=== PATIENT | female | born 1940 | race Caucasian/White ===

== ENCOUNTER 2017-12-13 14:29 | Inpatient (IN) | payer MEDICARE ==
[2017-12-13] MEDS ORDERED: SODIUM CHLORIDE 0.9% 1,000 ML IV STA (14:51)
[2017-12-13] MEDS ORDERED: ACETAMINOPHEN IV (For NPO) 1,000 MG in EMPTY BAG 1 BAG IVPB ONE (15:00)
--- NOTE | 2017-12-13 15:05 | ED ---
General Adult HPI - General Chief complaint: Back Pain/Injury Stated complaint: Back Pain Time Seen by Provider: 12/13/17 14:46 Source: patient, family, RN notes reviewed, old records reviewed Mode of arrival: wheelchair Limitations: physical limitation - History of Present Illness Initial comments: 77-year-old female history of chronic back pain secondary to lumbar compression fractures presents with 3 days of worsening pain. Patient has not fallen recently, she did have a fall approximately 3 months ago and was diagnosed with several new compression fractures. She does follow with orthopedic surgery and is instructed to wear a back brace. Pain is bilateral and severe. She is only taking tramadol for the pain at home. She does not use any opiate pain medication. Patient denies vomiting or diarrhea. Denies chest pain. She does report mild cough and dyspnea. According to the patient's she has not been out of bed for the past 3 days, she is normally ambulatory with some assistance. - Related Data Home Medications Medication Instructions Recorded Confirmed Atorvastatin [Lipitor] 20 mg PO HS 07/31/14 12/13/17 Cholecalciferol [Vitamin D3] 2,000 units PO DAILY 07/31/14 12/13/17 Folic Acid 1 mg PO DAILY 07/31/14 12/13/17 Methotrexate Sodium [Methotrexate] 12.5 mg PO SA 07/31/14 12/13/17 Amiodarone [Cordarone] 200 mg PO DAILY 10/03/15 12/13/17 Enalapril [Vasotec] 10 mg PO BID 10/03/15 12/13/17 Apixaban [Eliquis] 2.5 mg PO BID 11/18/17 12/13/17 Etanercept [Enbrel] 50 mg SQ Q7DAYS 11/18/17 12/13/17 Omeprazole [PriLOSEC] 20 mg PO AC-BID 11/18/17 12/13/17 Acetaminophen [Tylenol Extra 1,000 mg PO Q6H PRN 12/13/17 12/13/17 Strength] traMADol HCL [Ultram] 50 mg PO Q6HR PRN 12/13/17 12/13/17 Previous Rx's Medication Instructions Recorded Diltiazem Cd [Cardizem CD] 120 mg PO DAILY #30 cap.er.24h 09/08/14 Furosemide [Lasix] 20 mg PO DAILY #0 10/25/15 Allergies Allergy/AdvReac Type Severity Reaction Status Date / Time anakinra [From Kineret] Allergy blistered Verified 12/13/17 16:11 skin corticotropin Allergy immobility Verified 12/13/17 16:11 [From [facility] iodine Allergy Unknown Verified 12/13/17 16:11 venom-honey bee Allergy Anaphylaxis Verified 12/13/17 16:11 [bee venom (honey bee)] [place] Venom Allergy Anaphylaxis Uncoded 12/13/17 14:44 Review of Systems ROS Statement: Those systems with pertinent positive or pertinent negative responses have been documented in the HPI. ROS Other: All systems not noted in ROS Statement are negative. Past Medical History Past Medical History: Atrial Fibrillation, Diabetes Mellitus, GERD/Reflux, Hyperlipidemia, Hypertension, Osteoarthritis (OA), Rheumatoid Arthritis (RA) Additional Past Medical History / Comment(s): SOB w/activity, diet controlled diabetic only checks bs occ, past renal insufficincy, hiatal hernia, uti, anemia , djd. was checked for c-diff on 10-11-15-neg, diverticulitis, per egd 08-09-15 1 cm antrl ulcer-prepyloric area and gastritis. chronic back pain History of Any Multi-Drug Resistant Organisms: None Reported Past Surgical History: Appendectomy, Bowel Resection, Breast Surgery, Hernia Repair, Orthopedic Surgery, Tubal Ligation Additional Past Surgical History / Comment(s): ankle arthroscopies,BOWEL RESECTION D/T RUTPTURED BOWEL, colostomy then reversal, breast biopsies, cataract surg.colonoscpy/egd. Past Anesthesia/Blood Transfusion Reactions: No Reported Reaction Past Psychological History: No Psychological Hx Reported Smoking Status: Former smoker Past Alcohol Use History: None Reported Past Drug Use History: None Reported - Past Family History Mother Additional Family Medical History / Comment(s): AGE 92 AFTER PLACEMENT IN [facility]. PT WAS HEALTHY FROM NATURAL CAUSES Father Family Medical History: Deep Vein Thrombosis (DVT), Myocardial Infarction (SC) General Exam Limitations: physical limitation General appearance: alert, in no apparent distress Head exam: Present: atraumatic, normocephalic Eye exam: Present: normal appearance, PERRL Neck exam: Present: normal inspection. Absent: tenderness Respiratory exam: Present: respiratory distress (mild), decreased breath sounds , other (Tachypnea) Cardiovascular Exam: Present: regular rate, normal rhythm GI/Abdominal exam: Present: soft, distended. Absent: tenderness Extremities exam: Present: normal capillary refill. Absent: pedal edema, calf tenderness Back exam: Present: tenderness, paraspinal tenderness, vertebral tenderness Neurological exam: Present: alert, oriented X3, CN II-XII intact, motor sensory deficit (Bilateral lower extremity weakness secondary to severe back pain) Skin exam: Present: warm, dry, intact. Absent: cyanosis, diaphoretic Course Vital Signs 12/13/17 14:38 Temperature 101.1 F H Pulse Rate 90 Respiratory 20 Rate Blood Pressure 114/59 O2 Sat by Pulse 93 L Oximetry Medical Decision Making - Medical Decision Making 77-year-old female presenting with worsening low back pain and immobility. Patient is found afebrile on initial vital signs. White blood cell count is elevated 17.3, hemoglobin stable 13.0, creatinine normal sodium 133, influenza negative, chest x-ray does show pneumonia versus atelectasis versus pulmonary nodule, given the elevated white blood cell count and fever she will be treated for pneumonia. Lumbar x-ray is also obtained secondary to pain complaint, this is stable appearing lumbar fractures. Urinalysis and urine culture are pending. Blood culture pending. Diagnosis: Community acquired pneumonia, sepsis - Lab Data Result diagrams: 12/13/17 15:38 12/13/17 15:38 Lab Results 12/13/17 12/13/17 12/13/17 Range/Units 13:40 15:38 15:38 WBC 17.3 H (3.8-10.6) k/uL RBC 3.93 (3.80-5.40) m/uL Hgb 13.0 (11.4-16.0) gm/dL Hct 40.5 (34.0-46.0) % MCV 103.2 H (80.0-100.0) fL MCH 33.2 (25.0-35.0) pg MCHC 32.2 (31.0-37.0) g/dL RDW 15.4 (11.5-15.5) % Plt Count 308 (150-450) k/uL Neutrophils % 84 % Lymphocytes % 8 % Monocytes % 6 % Eosinophils % 0 % Basophils % 0 % Neutrophils # 14.5 H (1.3-7.7) k/uL Lymphocytes # 1.3 (1.0-4.8) k/uL Monocytes # 1.1 H (0-1.0) k/uL Eosinophils # 0.1 (0-0.7) k/uL Basophils # 0.1 (0-0.2) k/uL Hypochromasia Slight Macrocytosis Slight Sodium 133 L (137-145) mmol/L Potassium 4.8 (3.5-5.1) mmol/L Chloride 100 (98-107) mmol/L Carbon Dioxide 20 L (22-30) mmol/L Anion Gap 13 mmol/L BUN 16 (7-17) mg/dL Creatinine 0.74 (0.52-1.04) mg/dL Est GFR (MDRD) Af Amer >60 (>60 ml/min/1.73 sqM) Est GFR (MDRD) Non-Af >60 (>60 ml/min/1.73 sqM) Glucose 152 H (74-99) mg/dL Plasma Lactic Acid Jimenez (0.7-2.0) mmol/L Calcium 9.2 (8.4-10.2) mg/dL Total Bilirubin 1.0 (0.2-1.3) mg/dL AST 54 H (14-36) U/L ALT 44 (9-52) U/L Alkaline Phosphatase 80 (38-126) U/L Total Protein 6.9 (6.3-8.2) g/dL Albumin 3.4 L (3.5-5.0) g/dL Influenza Type A RNA Not Detected (Not Detectd) Influenza Type B (PCR) Not Detected (Not Detectd) 12/13/17 Range/Units 15:38 WBC (3.8-10.6) k/uL RBC (3.80-5.40) m/uL Hgb (11.4-16.0) gm/dL Hct (34.0-46.0) % MCV (80.0-100.0) fL MCH (25.0-35.0) pg MCHC (31.0-37.0) g/dL RDW (11.5-15.5) % Plt Count (150-450) k/uL Neutrophils % % Lymphocytes % % Monocytes % % Eosinophils % % Basophils % % Neutrophils # (1.3-7.7) k/uL Lymphocytes # (1.0-4.8) k/uL Monocytes # (0-1.0) k/uL Eosinophils # (0-0.7) k/uL Basophils # (0-0.2) k/uL Hypochromasia Macrocytosis Sodium (137-145) mmol/L Potassium (3.5-5.1) mmol/L Chloride (98-107) mmol/L Carbon Dioxide (22-30) mmol/L Anion Gap mmol/L BUN (7-17) mg/dL Creatinine (0.52-1.04) mg/dL Est GFR (MDRD) Af Amer (>60 ml/min/1.73 sqM) Est GFR (MDRD) Non-Af (>60 ml/min/1.73 sqM) Glucose (74-99) mg/dL Plasma Lactic Acid Jimenez 1.7 (0.7-2.0) mmol/L Calcium (8.4-10.2) mg/dL Total Bilirubin (0.2-1.3) mg/dL AST (14-36) U/L ALT (9-52) U/L Alkaline Phosphatase (38-126) U/L Total Protein (6.3-8.2) g/dL Albumin (3.5-5.0) g/dL Influenza Type A RNA (Not Detectd) Influenza Type B (PCR) (Not Detectd) Disposition Clinical Impression: Sepsis, Community acquired pneumonia Disposition: ADMITTED IP TO THIS [facility] Condition: Stable Referrals: Laya Magallon MD [STAFF PHYSICIAN] - 1-2 days Decision to Admit Reason: Admit from EC Decision Date: 12/13/17 Decision Time: 17:00
[2017-12-13 15:55] LABS: Basophils # (A) 0.1 k/uL (0-0.2); Basophils % (A) 0 %; Eosinophils # (A) 0.1 k/uL (0-0.7); Eosinophils % (A) 0 %; HCT 40.5 % (34.0-46.0); Hypochromasia Slight; Lymphocytes # (A) 1.3 k/uL (1.0-4.8); Lymphocytes % (A) 8 %; MCH 33.2 pg (25.0-35.0); MCHC 32.2 g/dL (31.0-37.0); MCV 103.2 fL (80.0-100.0); Macrocytosis Slight; Mean Platelet Volume 8.2; Monocytes # (A) 1.1 k/uL (0-1.0); Monocytes % (A) 6 %; Neutrophils # (A) 14.5 k/uL (1.3-7.7); Neutrophils % (A) 84 %; Platelet Count 308 k/uL (150-450); RBC 3.93 m/uL (3.80-5.40); RDW 15.4 % (11.5-15.5); WBC 17.3 k/uL (3.8-10.6)
[2017-12-13 16:05] LABS: ALT 44 U/L (9-52); AST 54 U/L (14-36); Albumin 3.4 g/dL (3.5-5.0); Alkaline Phosphatase 80 U/L (38-126); Anion Gap 13 mmol/L; Blood Urea Nitrogen 16 mg/dL (7-17); Calcium 9.2 mg/dL (8.4-10.2); Carbon Dioxide 20 mmol/L (22-30); Chloride 100 mmol/L (98-107); Glucose 152 mg/dL (74-99); Sodium 133 mmol/L (137-145); Total Protein 6.9 g/dL (6.3-8.2)
[2017-12-13 16:27] LABS: Potassium 4.8 mmol/L (3.5-5.1)
[2017-12-13] MEDS ORDERED: KETOROLAC 30 MG/ML 1 ML VIAL IVP STA (16:55)
[2017-12-13] MEDS ORDERED: AZITHROMYCIN 500 MG in SODIUM CHLORIDE 0.9% 250 ML IVPB STA (17:30)
[2017-12-13] MEDS ORDERED: cefTRIAXone IN SWFI 1,000 MG/10 ML SYRINGE IVP STA (17:30)
--- NOTE | 2017-12-13 17:37 | XR ---
EXAMINATION TYPE: XR chest 2V DATE OF EXAM: 12/13/2017 COMPARISON: Report fifth 2015 HISTORY: Chest pain TECHNIQUE: Frontal and lateral views of the chest are obtained. FINDINGS: Lateral view there is a 2.8 x 1.8 cm focus of increased density which could relate to atele ctasis or pneumonia. Alternatively this focus could represent a neoplasm. No pneumothorax or pleural effusion is identified. The cardiac silhouette is within normal limits. IMPRESSION: Abnormal focus seen on the lateral view overlying a midthoracic lumbar vertebral body. This could rel ate to atelectasis pneumonia or some type of pulmonary nodule. It was not present on the previous juan carlos dy from December 2015. Recommend correlation with prior outside studies. CT of the thorax is recommen ded if warranted.
--- NOTE | 2017-12-13 17:41 | XR ---
EXAMINATION TYPE: XR lumbar spine 2 or 3V DATE OF EXAM: 12/13/2017 CLINICAL HISTORY: Back pain TECHNIQUE: Frontal, lateral, and oblique images of the lumbar spine are obtained. COMPARISON: CT scan obtained on October 18, 2015. FINDINGS: Compression deformities are again seen at the level of L1 L3 and L4. There is grade 2 retro listhesis of L3 on L4. There is grade 1 anterolisthesis of L4 on L5. There is levoconvex curvature of the midlumbar spine. Surgical clips are seen in the gallbladder fossa. There is diffuse osteopenia. Compression deformity is also seen at the level of T11. IMPRESSION: Multiple compression deformities are identified these appear stable when compared to the prior CT sca n obtained on October 18, 2015.
[2017-12-13] MEDS ORDERED: PNEUMONIA PROTOCOL UTILIZED 1 EACH MISC PO PRN (17:42)
[2017-12-13] MEDS ORDERED: ACETAMINOPHEN TAB 325 MG TAB PO PRN (17:45)
[2017-12-13 18:30] LABS: Amorphous Sediment,Urine Occasional /hpf; Appearance,Urine Turbid (Clear); Bacteria,Urine Moderate /hpf; Bilirubin,Urine Negative (Negative); Blood,Urine Small (Negative); Color,Urine Yellow; Glucose,Urine (UA) 1+ (Negative); Hyaline Casts,Urine 88 /lpf (0-2); Ketones,Urine Trace (Negative); Leukocyte Esterase,Urine Large (Negative); Mucus,Urine Moderate /hpf; Nitrite,Urine Negative (Negative); PH, Urine 5.5 (5.0-8.0); Protein,Urine 1+ (Negative); RBC,Urine 11 /hpf (0-5); Specific Gravity,Urine 1.018 (1.001-1.035); Squamous Epithelial Cell,Urine 129 /hpf (0-4); Urobilinogen,Urine <2.0 mg/dL (<2.0); WBC,Urine 114 /hpf (0-5)
[2017-12-13] MEDS: ALBUTEROL NEBULIZED 2.5 MG/3 ML INHALATION SCH (19:46)
[2017-12-13] MEDS: traMADol 50 MG TAB PO PRN (22:33)
[2017-12-13] MEDS: APIXABAN 2.5 MG TABLET PO SCH (22:33)
[2017-12-13] MEDS: ATORVASTATIN 20 MG TAB PO SCH (22:33)
[2017-12-13] MEDS: KETOROLAC 30 MG/ML 1 ML VIAL IVP SCH (22:41)
[2017-12-14] MEDS: KETOROLAC 30 MG/ML 1 ML VIAL IVP SCH ×5 (00:28→23:43)
[2017-12-14] MEDS ORDERED: IOHEXOL 350 MG/ML 25 ML BOTTLE (ORAL USE) PO PRN (01:48)
[2017-12-14] MEDS: SODIUM CHLORIDE 0.9% 1,000 ML IV SCH ×2 (05:35→17:15)
[2017-12-14] MEDS ORDERED: BARIUM SULFATE 450 ML ORAL.SUSP BOTTLE PO ONE ×2 (06:32→12:28)
[2017-12-14] MEDS: PANTOPRAZOLE 40 MG TABLET PO SCH ×2 (08:02→17:16)
[2017-12-14] MEDS: CHOLECALCIFEROL 1,000 UNIT TAB PO SCH (08:03)
[2017-12-14] MEDS: APIXABAN 2.5 MG TABLET PO SCH ×2 (08:03→20:04)
[2017-12-14] MEDS: ALBUTEROL NEBULIZED 2.5 MG/3 ML INHALATION SCH ×4 (08:03→19:36)
[2017-12-14] MEDS: DILTIAZEM CD 120 MG CAP.ER.24H PO SCH (08:03)
[2017-12-14] MEDS: FUROSEMIDE 20 MG TAB PO SCH (08:03)
[2017-12-14] MEDS: AMIODARONE 200 MG TAB PO SCH (08:03)
[2017-12-14] MEDS: FOLIC ACID 1 MG TAB PO SCH (08:03)
--- NOTE | 2017-12-14 08:42 | HP ---
HISTORY AND PHYSICAL DATE OF SERVICE: 12/13/2017 CHIEF COMPLAINTS: Weakness and as well as back pain and fall and pneumonia. HISTORY OF PRESENT ILLNESS: This 77-year-old woman with a past medical history of multiple medical problems including atrial ablation, diabetes, GERD, hyperlipidemia, hypertension, DJD, rheumatoid arthritis being followed by Dr. Peña in the outpatient setting, was complaining of increasing weakness and fall. Patient apparently also had compression fractures recently. The patient also was instructed to wear a back brace. Patient was on Ultram. The patient is not feeling well. Patient apparently had some fever and the patient came to [facility] and admitted for further evaluation and treatment. A chest x-ray showed evidence of possible pneumonia, pulmonary nodule in the midthoracic lumbar vertebral area and lumbar spine x-ray showed multiple compression fractures. Patient admitted for further evaluation and treatment. There is no history of any fever, rigors, chills at this time. PAST MEDICAL HISTORY: History of diabetes mellitus, history of atrial ablation, GERD, hypertension, hyperlipidemia, DJD, history of rheumatoid arthritis. MEDICATIONS ARE: 1. Ultram 50 mg q.6h p.r.n. 2. Tylenol Extra Strength 1000 mg p.r.n. 3. Prilosec 20 mg a.c. b.i.d. 4. Methotrexate 12.5 mg p.o. daily. 5. Lasix 20 mg b.i.d. 6. Folic acid 1 mg b.i.d. 7. Enbrel 50 mg subcu 7 days. 8. Vasotec 10 mg p.o. b.i.d. 9. Cardizem CD 120 mg p.o. daily. 10.Vitamin D3 2000 daily. 11.Lipitor 20 mg q.h.s. 12.Eliquis 2.5 mg p.o. b.i.d. 13.Cordarone 200 mg p.o. daily. ALLERGIES: CORTICOTROPIN, IODINE, HONEY BEE, YELLOW JACKET VENOM. FAMILY HISTORY: History of DVT, history myocardial infarction. SOCIAL HISTORY: Previous history of smoking. No history of current smoking. REVIEW OF SYMPTOMS: ENT diminished vision, diminished hearing. Cardiovascular as mentioned earlier. Respiratory: As mentioned earlier. GI no nausea or vomiting. no dysuria. Nervous system: No numbness, weakness. Allergy/Immunology: No asthma or hayfever. Musculoskeletal: As mentioned earlier. Hematology/Oncology: No history of anemia. Endocrine: No history of diabetes, hypothyroidism. Constitutional: As mentioned earlier. Rheumatology: Negative. Dermatology: Negative. Psychiatric: mentioned earlier. PHYSICAL EXAMINATION: Alert, oriented times three. Pulse 63, blood pressure 87/52, respirations 16, temperature 97 degrees, pulse ox 94% room air. HEENT conjunctivae normal. Oral mucosa moist. Neck is no jugular venous distention. No carotid bruit. No lymph node enlargement. Cardiovascular: S1, S2 muffled. No S3, no S4. RESPIRATORY: Breath sounds diminished in the bases. A few scattered rhonchi and crackles. ABDOMEN: Soft, nontender. No mass palpable. Legs: No edema. No swelling. Nervous system: Higher functions as mentioned. Moves all four extremities. Mild diffuse weakness. Lymphatics: No lymph nodes palpable in the neck, axillae or groin. Skin no ulcer, rash or bleeding. LABS: WBC 17.3 otherwise UA noted. ASSESSMENT: 1. Left diffuse weakness possibly urinary tract infection with sepsis present on admission. 2. Increased WBC. 3. Relative hypotension. 4. Rule out pneumonia. 5. Hyponatremia. 6. Generalized gait dysfunction. 7. Atrial fibrillation. 8. Diabetes. 9. Gastroesophageal reflux disease. 10.Hypertension. 11.Hyperlipidemia. 12.History of degenerative joint disease. 13.History of rheumatoid arthritis. 14.History of appendectomy. 15.History of breast surgery. 16.History of bowel resection. 17.History of congestive heart failure with chronic diastolic dysfunction, ejection fraction 50-55%. RECOMMENDATIONS AND DISCUSSION: In this 77-year-old woman who presented with multiple complex medical issues, we will monitor the patient closely, continue the current medications. I would recommend broad- spectrum IV antibiotics, cultures and also I would also recommend continue with current medication, continue symptomatic treatment. Otherwise I would also recommend IV fluids. Flu testing and PT/OT evaluation, possible ECF rehab. I would also recommend a CT scan of the abdomen, pelvis and chest also to rule out the possibility of any other significant lesions including pulmonary nodule or even pneumonia. Otherwise, empiric antibiotics as initiated. Further recommendations to follow. A copy of dictation being forwarded to Dr. Peña, who is the primary physician. MMSHAUNAL / NICKN: [id number] / [facility] HOSPITALDhiraj
[2017-12-14] MEDS ORDERED: cefTRIAXone IN SWFI 1,000 MG/10 ML SYRINGE IVP SCH (09:00)
--- NOTE | 2017-12-14 14:35 | CT ---
EXAMINATION TYPE: CT ChestAbdPelvis wo con DATE OF EXAM: 12/14/2017 COMPARISON: Abdomen and pelvis 10/18/2015 HISTORY: 77-year-old female with lung nodule TECHNIQUE: Contiguous axial scanning of the chest, abdomen, and pelvis without IV contrast. Coronal a nd sagittal reconstructions performed. CT DLP: 497.50 mGycm Automated exposure control for dose reduction was used. FINDINGS: Chest: Heart normal size without pericardial effusion. Dense mitral annular calcifications are present. Henry nary vessel calcifications are present in remarkable for coronary artery disease. Aorta normal caliber with mild to moderate atherosclerotic calcifications throughout. Conventional ar ch vessel branching anatomy. No thoracic lymphadenopathy. Evaluation of the lung shows bibasilar interstitial reticular densities likely chronic fibrosis. No c onsolidation or pleural effusion. No suspicious pulmonary nodule or mass is identified. ABDOMEN: Moderate-sized hiatal hernia. Contrast column seen within the esophagus. This may reflect gastroesoph ageal reflux. Noncontrast appearance of the liver, adrenal glands, kidneys, left upper quadrant splenules, and atro phic pancreas show no gross abnormality. Cholecystectomy clips. Moderate I prescribed calcifications within the abdominal aorta. Prior ventral abdominal wall hernia repair. Somewhat irregular circumferential thickening at the pylorus, axial image 56 and sagittal image 40. U ncertain if this is normal for the patient. No dilated small bowel, free fluid, or free air. Oral contrast progressed to the cecum. There is mild to moderate stool burden. Mid to distal sigmoid staple line related to prior bowel rese ction and reanastomosis. Prominent stool at the surgical level with the colon here measuring up to 5. 9 cm wide. No proximal dilatation is seen. Pelvis: Bladder distended. Uterus and small right ovary is seen. Left ovary not clearly visualized. There is pelvic floor relaxation. No abnormal fluid collection in the pelvis or pelvic lymphadenopathy. Bones: Degenerative changes at the hips and SI joints and throughout the spine with multilevel spondylolisth eses in the lumbar spine. Mild superior endplate compression deformity of L2 is new from 10/18/2015. L1 shows interval height l oss as compared to 2014, approximately 25% overall height loss. T11 shows similar vertebral compression deformity. Additional vertebral compression collapse of T7 and mild superior endplate compression deformity of T 5, age indeterminate but suspected chronic given the lack of any paravertebral hematoma. IMPRESSION: 1. THE QUESTIONED RADIOGRAPHIC FINDING IS SUSPECTED TO REPRESENT SUMMATION ARTIFACT. NO SUSPICIOUS PU LMONARY NODULE OR FOCAL INFILTRATE IS SEEN. CHRONIC INTERSTITIAL FIBROSIS CHANGES ARE PRESENT. 2. MODERATE-SIZED HIATAL HERNIA WITH CONTRAST COLUMN IN THE ESOPHAGUS. CORRELATE FOR GASTROESOPHAGEAL REFLUX DISEASE. 3. THICKENING AT THE PYLORUS SHOW SLIGHT IRREGULARITY. CONSIDER DIRECT VISUALIZATION TO EXCLUDE A MUC OSAL ABNORMALITY IF INDICATED. 4. DISTAL COLONIC RESECTION AND REANASTOMOSIS. THE INFLAMMATION PREVIOUSLY SEEN ON 10/18/2015 HAS RES OLVED. 5. ADVANCED MULTILEVEL DEGENERATIVE CHANGES, SPONDYLOLISTHESES, AND VERTEBRAL COMPRESSION DEFORMITIES WITHIN THE THORACIC AND LUMBAR SPINE. A MILD SUPERIOR L2 ENDPLATE COMPRESSION DEFORMITY IS NEW FROM 2014 AND L1 SHOWS DECREASING HEIGHT FROM THEN. THESE ARE AGED INDETERMINATE BUT SUSPECTED CHRONIC GIV EN THE LACK OF SURROUNDING INFLAMMATION.
--- NOTE | 2017-12-14 15:04 | CDI ---
Last Revision, October 2017 Documentation Clarification Form Date: 12/14/2017 2:56:00 PM From: Nitza Goodson RN, CCDS Admit Date: 12/13/2017 5:42:00 PM Patient Name: Samina Marquez Visit Number: [id number] ATTENTION: The Clinical Documentation Specialists (CDI) and [facility] Coding Staff appreciate your assistance in clarifying documentation. Please respond to the clarification below the line at the bottom and electronically sign. The CDI & [facility] Coding staff will review the response and follow-up if needed. Please note: Queries are made part of the Legal Health Record. If you have any questions, please contact the author of this message via ITS. Dr. Jesse Paul Atrial fibrillation is documented in the H&P History/Risk Factors: 12/14 H&P: "Atrial ablation, diabetes, GERD, hyperlipidemia, hypertension, DJD rheumatoid arthritis." Clinical Indicators: EKG/tele: not ordered Home Meds resumed Treatment: Consults: none Cordarone 200 mg PO QD, Eliquis 2.5 mg PO BID, Cardizem CD 120 mg PO QD In your professional opinion, can you please clarify the type of atrial fibrillation, if known? Chronic/Permanent Paroxysmal Persistent Other, please specify Unable to determine Please continue to document in your progress notes and discharge summary in order to capture severity of illness and risk of mortality. Include clinical findings that support your diagnosis. MTDD
[2017-12-14] MEDS ORDERED: AZITHROMYCIN 500 MG TAB PO SCH (17:44)
[2017-12-14] MEDS: ATORVASTATIN 20 MG TAB PO SCH (20:04)
--- NOTE | 2017-12-14 22:21 | PN ---
PROGRESS NOTE DATE OF SERVICE: 12/14/2017 This 77-year-old woman who was admitted with diffuse weakness, had a UTI also. The patient also had some difficulty in breathing also. The patient also underwent chest, abdomen and pelvis CAT scan today which showed no suspicious pulmonary infiltrate, chronic interstitial fibrosis noted, hiatal hernia was also noted. Thickening of the pylorus was also noted. Advanced multilevel DJD was also noted. There is no history of fever, rigors or chills at this time. PAST MEDICAL HISTORY: Noted. PHYSICAL EXAMINATION: Alert and oriented x3. Pulse 82, blood pressure 108/62, respirations 16, temperature 98.8, pulse ox 94% on room air. HEENT: Conjunctivae normal. Neck: No jugular venous distention. Cardiovascular : S1, S2 muffled. Respiration: Breath sounds diminished in the bases. Scattered rhonchi and crackles. ABDOMEN: Soft, nontender. No mass palpable. Legs are no edema. No swelling. Central nervous system: Diffusely weak. LAB STUDIES: WBC 17.3, MCV 103.2. Sodium 133, UA noted. ASSESSMENT: 1. Diffuse weakness possibly urinary tract infection with sepsis present on admission. 2. Increased WBC. 3. Relative hypotension. 4. Multilevel degenerative joint disease in the CT scan. 5. No evidence of pneumonia in the CT scan. 6. Hyponatremia. 7. Generalized gait dysfunction. 8. Atrial fibrillation history. 9. Diabetes type 2. 10.Gastroesophageal reflux disease. 11.Hypertension. 12.Hyperlipidemia. 13.History pf degenerative joint disease. 14.Rheumatoid arthritis. 15.History of appendectomy. 16.History of breast surgery. 17.History of bowel resection. 18.History of congestive heart failure with chronic diastolic dysfunction ejection fraction 50-55%. 19.Gait dysfunction. RECOMMENDATIONS AND DISCUSSION: In this 77 -year-old woman who presented with multiple complex medical issues, we will monitor the patient closely, continue the current medications, management, IV antibiotics. Otherwise, I recommend also PT/OT evaluation for possible ECF rehab. Repeat labs will be ordered. Guarded prognosis because of multiple complex medical issues. Further recommendations to follow. MMODL / IJN: [id number] / MTDD
[2017-12-15] MEDS: KETOROLAC 30 MG/ML 1 ML VIAL IVP SCH ×4 (05:48→22:59)
[2017-12-15] MEDS: ALBUTEROL NEBULIZED 2.5 MG/3 ML INHALATION SCH ×4 (07:04→20:31)
[2017-12-15] MEDS: AMIODARONE 200 MG TAB PO SCH (07:42)
[2017-12-15] MEDS: PANTOPRAZOLE 40 MG TABLET PO SCH (07:42)
[2017-12-15] MEDS: CHOLECALCIFEROL 1,000 UNIT TAB PO SCH (07:42)
[2017-12-15] MEDS: DILTIAZEM CD 120 MG CAP.ER.24H PO SCH (07:43)
[2017-12-15] MEDS: FOLIC ACID 1 MG TAB PO SCH (07:43)
[2017-12-15] MEDS: FUROSEMIDE 20 MG TAB PO SCH (07:43)
[2017-12-15] MEDS: APIXABAN 2.5 MG TABLET PO SCH ×2 (07:43→20:54)
[2017-12-15] MEDS: cefTRIAXone IN SWFI 1,000 MG/10 ML SYRINGE IVP SCH (08:10)
--- NOTE | 2017-12-15 09:13 | CDI ---
Last Revision, October 2017 Documentation Clarification Form Date: 12/14/2017 2:56:00 PM From: Nitza Goodson RN, CCDS Admit Date: 12/13/2017 5:42:00 PM Patient Name: Samina Marquez Visit Number: [id number] ATTENTION: The Clinical Documentation Specialists (CDI) and [facility] Coding Staff appreciate your assistance in clarifying documentation. Please respond to the clarification below the line at the bottom and electronically sign. The CDI & [facility] Coding staff will review the response and follow-up if needed. Please note: Queries are made part of the Legal Health Record. If you have any questions, please contact the author of this message via ITS. Dr. Magalis Diego Atrial fibrillation is documented in the H&P. History/Risk Factors: Atrial ablation, atrial fib, GERD, HTN, Hyperlipidemia Clinical Indicators: 12/14 H&P: "Atrial ablation, diabetes, GERD, hyperlipidemia, hypertension, DJD rheumatoid arthritis." EKG/tele: not ordered Treatment: Consults: none Cordarone 200 mg PO QD, Eliquis 2.5 mg PO BID, Cardizem CD 120 mg PO QD In your professional opinion, can you please clarify the type of atrial fibrillation, if known? Chronic/Permanent Paroxysmal Persistent Other, please specify Unable to determine Please continue to document in your progress notes and discharge summary in order to capture severity of illness and risk of mortality. Include clinical findings that support your diagnosis. Paroxysmal a fib MTDD
[2017-12-15 10:21] LABS: Anion Gap 11 mmol/L; Blood Urea Nitrogen 24 mg/dL (7-17); Calcium 8.3 mg/dL (8.4-10.2); Carbon Dioxide 20 mmol/L (22-30); Chloride 104 mmol/L (98-107); Glucose 141 mg/dL (74-99); Potassium 3.5 mmol/L (3.5-5.1); Sodium 135 mmol/L (137-145)
[2017-12-15 11:23] LABS: Basophils % (A) 0 %; Eosinophils # (A) 0.3 k/uL (0-0.7); Eosinophils % (A) 3 %; HCT 33.5 % (34.0-46.0); HGB 10.5 gm/dL (11.4-16.0); Hypochromasia Slight; Lymphocytes # (A) 0.9 k/uL (1.0-4.8); Lymphocytes % (A) 10 %; MCH 32.4 pg (25.0-35.0); MCHC 31.3 g/dL (31.0-37.0); MCV 103.6 fL (80.0-100.0); Macrocytosis Slight; Monocytes # (A) 0.5 k/uL (0-1.0); Monocytes % (A) 5 %; Neutrophils # (A) 7.7 k/uL (1.3-7.7); Neutrophils % (A) 81 %; Platelet Count 308 k/uL (150-450); RBC 3.23 m/uL (3.80-5.40); RDW 14.2 % (11.5-15.5); WBC 9.5 k/uL (3.8-10.6)
[2017-12-15] MEDS: SODIUM CHLORIDE 0.9% 1,000 ML IV SCH (18:16)
[2017-12-15] MEDS: ATORVASTATIN 20 MG TAB PO SCH (20:54)
[2017-12-15] MEDS: PANTOPRAZOLE 40 MG/10 ML VIAL IVP SCH (20:55)
[2017-12-16] MEDS: KETOROLAC 30 MG/ML 1 ML VIAL IVP SCH ×2 (06:11→11:22)
[2017-12-16] MEDS: ALBUTEROL NEBULIZED 2.5 MG/3 ML INHALATION SCH ×4 (07:08→19:15)
[2017-12-16] MEDS: AMIODARONE 200 MG TAB PO SCH (09:20)
[2017-12-16] MEDS: FUROSEMIDE 20 MG TAB PO SCH (09:20)
[2017-12-16] MEDS: FOLIC ACID 1 MG TAB PO SCH (09:20)
[2017-12-16] MEDS: CHOLECALCIFEROL 1,000 UNIT TAB PO SCH (09:20)
[2017-12-16] MEDS: PANTOPRAZOLE 40 MG/10 ML VIAL IVP SCH ×2 (09:21→21:10)
[2017-12-16] MEDS: APIXABAN 2.5 MG TABLET PO SCH ×2 (09:21→21:10)
[2017-12-16] MEDS: cefTRIAXone IN SWFI 1,000 MG/10 ML SYRINGE IVP SCH (09:21)
[2017-12-16] MEDS: DILTIAZEM CD 120 MG CAP.ER.24H PO SCH (09:23)
--- NOTE | 2017-12-16 10:19 | P.PN ---
Subjective Progress Note Date: 12/15/17 Progress note being dictated for Dr. Diego. Interval history: This a 77-year-old female admitted with generalized diffuse weakness, UTI and multiple other medical issues. Maintained on Rocephin. Afebrile, normal WBC. Urine cultures reporting E. coli. Evaluated by physical therapy/OT and subacute rehab recommended at discharge. Objective - Vital Signs Vital signs: Vital Signs Temp 97.6 F 12/15/17 14:58 Pulse 76 12/15/17 17:26 Resp 18 12/15/17 14:58 BP 118/61 12/15/17 14:58 Pulse Ox 95 12/15/17 14:58 Intake & Output 12/14/17 12/15/17 12/15/17 18:59 06:59 18:59 Intake Total 480 Output Total 250 Balance 230 Intake: Oral 480 Output: Emesis 250 Other: Voiding Method Toilet # Voids 1 1 3 # Bowel Movements 1 1 1 - Exam PHYSICAL EXAM: VITAL SIGNS: As above GENERAL: Sitting up in bed, no acute distress HEENT: Conjunctivae normal. eyes normal. Oral mucosa moist NECK: No JVD. No thyroid enlargement. No LNs CARDIOVASCULAR: S1, S2 muffled. No murmur RESPIRATION: Breath sounds diminished in the bases. Scattered rhonchi and crackles. ABDOMEN: Soft, nontender . No guarding. no masses palpable.Bowel sounds heard. LEGS: No edema. no swelling PSYCHIATRY: Alert and oriented -3, mood and affect normal. NERVOUS SYSTEM: Cranial N 2-12 grossly normal. Moves all 4 limbs. Diffuse weakness No focal deficits. No sensory deficit. Skin: no ulcer no rash Joints: No active swelling. No inflammation. Lymphatic system. No LN neck axilla or groin. - Labs CBC & Chem 7: 12/15/17 08:40 12/15/17 08:40 Labs: Abnormal Lab Results - Last 24 Hours (Table) 12/15/17 12/15/17 Range/Units 08:40 08:40 RBC 3.23 L (3.80-5.40) m/uL Hgb 10.5 L (11.4-16.0) gm/dL Hct 33.5 L (34.0-46.0) % MCV 103.6 H (80.0-100.0) fL Lymphocytes # 0.9 L (1.0-4.8) k/uL Sodium 135 L (137-145) mmol/L Carbon Dioxide 20 L (22-30) mmol/L BUN 24 H (7-17) mg/dL Glucose 141 H (74-99) mg/dL Calcium 8.3 L (8.4-10.2) mg/dL Microbiology - Last 24 Hours (Table) 12/13/17 15:38 Blood Culture - Preliminary Blood No Growth after 48 hours 12/13/17 18:17 Urine Culture - Preliminary Urine,Catheterized Escherichia coli Assessment and Plan Assessment: 1. Diffuse weakness , acute UTI with E. coli with sepsis, present on admission. 2. [ Leukocytosis resolved]. 3. [ Relative hypotension]. 4. [ Generalized Gait dysfunction, Multilevel degenerative joint disease per computed tomography scan]. 5. [ Pneumonia ruled out per CT]. 6. [ Hyponatremia, improving]. 7. [ Diabetes mellitus type 2. 8. Gastroesophageal reflux disease 9. Chronic CHF, diastolic dysfunction, EF 50-55% 10. Rheumatoid arthritis Plan: Continue on current medication regime , antibiotics, monitoring and symptomatic treatment. PT/OT. Discharge planning in progress with preop pending for [facility] subacute rehab. The impression and plan of care has been dictated as directed. : I performed a history and examination of this patient, discussed the same with the dictator. I agree with the dictator's note ,documented as a scribe. Any additional findings or plans will be noted.
[2017-12-16 10:33] LABS: Basophils % (A) 1 %; Eosinophils # (A) 0.4 k/uL (0-0.7); Eosinophils % (A) 5 %; HCT 31.2 % (34.0-46.0); HGB 9.6 gm/dL (11.4-16.0); Hypochromasia Moderate; Lymphocytes # (A) 1.2 k/uL (1.0-4.8); Lymphocytes % (A) 18 %; MCH 32.9 pg (25.0-35.0); MCHC 30.8 g/dL (31.0-37.0); MCV 106.9 fL (80.0-100.0); Macrocytosis Moderate; Mean Platelet Volume 9.1; Monocytes # (A) 0.5 k/uL (0-1.0); Monocytes % (A) 8 %; Neutrophils # (A) 4.4 k/uL (1.3-7.7); Neutrophils % (A) 66 %; Platelet Count 310 k/uL (150-450); RBC 2.91 m/uL (3.80-5.40); WBC 6.8 k/uL (3.8-10.6)
[2017-12-16 10:43] LABS: Anion Gap 11 mmol/L; Blood Urea Nitrogen 17 mg/dL (7-17); Calcium 8.5 mg/dL (8.4-10.2); Carbon Dioxide 19 mmol/L (22-30); Chloride 109 mmol/L (98-107); Glucose 155 mg/dL (74-99); Potassium 3.7 mmol/L (3.5-5.1); Sodium 139 mmol/L (137-145)
--- NOTE | 2017-12-16 12:56 | P.DS ---
Providers Date of admission: 12/13/17 17:42 Attending physician: Valeria Almazan Primary care physician: Yovany Peña Hospital Course: Final Diagnoses: 1. Diffuse weakness , acute UTI with E. coli with sepsis, present on admission. 2. [ Leukocytosis resolved]. 3. [ Relative hypotension]. 4. [ Generalized Gait dysfunction, Multilevel degenerative joint disease per computed tomography scan]. 5. [ Pneumonia ruled out per CT]. 6. [ Hyponatremia, improving]. 7. [ Diabetes mellitus type 2. 8. Gastroesophageal reflux disease 9. Chronic CHF, diastolic dysfunction, EF 50-55% 10. Rheumatoid arthritis Hospital Course:This is a 77-year-old female admitted with generalized diffuse weakness, UTI and multiple other medical issues. Afebrile, normal WBC. Urine cultures reporting E. coli. Maintained on Rocephin. Significant clinical improvement. Patient is being discharged to [facility] subacute rehab in a stable condition with guarded prognosis. Physical exam:VSS,CARDIOVASCULAR: S1, S2 muffled. No murmur.RESPIRATION: Breath sounds diminished in the bases. Scattered rhonchi and crackles. ABDOMEN: Soft, nontender . No guarding. no masses palpable.Bowel sounds heard.PSYCHIATRY: Alert and oriented -3, mood and affect normal. Diffuse weakness No focal deficits. No sensory deficit. The impression and plan of care has been dictated as directed. : I performed a history and examination of this patient, discussed the same with the dictator. I agree with the dictator's note ,documented as a scribe. Any additional findings or plans will be noted. Time taken: 35 minutes Patient Condition at Discharge: Stable Plan - Discharge Summary New Discharge Prescriptions: New Albuterol Nebulized [Ventolin Nebulized] 2.5 mg INHALATION RT-QID nebu Cefuroxime Axetil [Ceftin] 500 mg PO BID #14 tab Continue Cholecalciferol [Vitamin D3] 2,000 units PO DAILY Methotrexate Sodium [Methotrexate] 12.5 mg PO SA Folic Acid 1 mg PO DAILY Atorvastatin [Lipitor] 20 mg PO HS Diltiazem Cd [Cardizem CD] 120 mg PO DAILY #30 cap.er.24h Amiodarone [Cordarone] 200 mg PO DAILY Enalapril [Vasotec] 10 mg PO BID Furosemide [Lasix] 20 mg PO DAILY #0 Etanercept [Enbrel] 50 mg SQ Q7DAYS Apixaban [Eliquis] 2.5 mg PO BID Omeprazole [PriLOSEC] 20 mg PO AC-BID Acetaminophen [Tylenol Extra Strength] 1,000 mg PO Q6H PRN PRN Reason: Pain traMADol HCL [Ultram] 50 mg PO Q6HR PRN #20 tablet PRN Reason: Pain Discharge Medication List Atorvastatin [Lipitor] 20 mg PO HS 07/31/14 [History] Cholecalciferol [Vitamin D3] 2,000 units PO DAILY 07/31/14 [History] Folic Acid 1 mg PO DAILY 07/31/14 [History] Methotrexate Sodium [Methotrexate] 12.5 mg PO SA 07/31/14 [History] Diltiazem Cd [Cardizem CD] 120 mg PO DAILY #30 cap.er.24h 09/08/14 [Rx] Amiodarone [Cordarone] 200 mg PO DAILY 10/03/15 [History] Enalapril [Vasotec] 10 mg PO BID 10/03/15 [History] Furosemide [Lasix] 20 mg PO DAILY #0 10/25/15 [Rx] Apixaban [Eliquis] 2.5 mg PO BID 11/18/17 [History] Etanercept [Enbrel] 50 mg SQ Q7DAYS 11/18/17 [History] Omeprazole [PriLOSEC] 20 mg PO AC-BID 11/18/17 [History] Acetaminophen [Tylenol Extra Strength] 1,000 mg PO Q6H PRN 12/13/17 [History] Albuterol Nebulized [Ventolin Nebulized] 2.5 mg INHALATION RT-QID nebu [Rx] Cefuroxime Axetil [Ceftin] 500 mg PO BID #14 tab 12/16/17 [Rx] traMADol HCL [Ultram] 50 mg PO Q6HR PRN #20 tablet 12/16/17 [Rx] Follow up Appointment(s)/Referral(s): Yovany Peña MD [Primary Care Provider] - 1 Week Laya Magallon MD [STAFF PHYSICIAN] - 12/23/17 Patient Instructions/Handouts: Urinary Tract Infection in Women (DC) Activity/Diet/Wound Care/Special Instructions[facility] Cardiac, diabetic diet. Activity: as tolerated Fall precautions. Discharge Disposition: TRANSFER TO SNF/ECF
[2017-12-16] MEDS: SODIUM CHLORIDE 0.9% 1,000 ML IV SCH (18:47)
[2017-12-16] MEDS: CEFUROXIME 250 MG TAB PO SCH (21:10)
[2017-12-16] MEDS: ATORVASTATIN 20 MG TAB PO SCH (21:10)
[2017-12-16] MEDS: traMADol 50 MG TAB PO PRN (21:15)
[2017-12-17] MEDS: ALBUTEROL NEBULIZED 2.5 MG/3 ML INHALATION SCH ×2 (07:14→10:58)
[2017-12-17 08:16] VITALS: BP 137/65; RESP 16; TEMP 96.6
[2017-12-17] MEDS: FUROSEMIDE 20 MG TAB PO SCH (08:22)
[2017-12-17] MEDS: CEFUROXIME 250 MG TAB PO SCH (08:22)
[2017-12-17] MEDS: DILTIAZEM CD 120 MG CAP.ER.24H PO SCH (08:22)
[2017-12-17] MEDS: AMIODARONE 200 MG TAB PO SCH (08:22)
[2017-12-17] MEDS: FOLIC ACID 1 MG TAB PO SCH (08:22)
[2017-12-17] MEDS: APIXABAN 2.5 MG TABLET PO SCH (08:22)
[2017-12-17] MEDS: CHOLECALCIFEROL 1,000 UNIT TAB PO SCH (08:23)
[2017-12-17] MEDS: traMADol 50 MG TAB PO PRN ×2 (08:29→14:18)
[2017-12-17] MEDS ORDERED: PANTOPRAZOLE 40 MG TABLET PO SCH (09:00)
[2017-12-17 11:06] LABS: Anion Gap 13 mmol/L; Blood Urea Nitrogen 11 mg/dL (7-17); Calcium 8.8 mg/dL (8.4-10.2); Carbon Dioxide 20 mmol/L (22-30); Chloride 107 mmol/L (98-107); Glucose 143 mg/dL (74-99); Potassium 3.8 mmol/L (3.5-5.1); Sodium 140 mmol/L (137-145)
[2017-12-17 11:08] LABS: Basophils # (A) 0.1 k/uL (0-0.2); Basophils % (A) 1 %; Eosinophils # (A) 0.4 k/uL (0-0.7); Eosinophils % (A) 7 %; HCT 37.3 % (34.0-46.0); HGB 11.4 gm/dL (11.4-16.0); Hypochromasia Moderate; Lymphocytes % (A) 18 %; MCH 32.7 pg (25.0-35.0); MCHC 30.6 g/dL (31.0-37.0); MCV 106.6 fL (80.0-100.0); Macrocytosis Moderate; Monocytes # (A) 0.5 k/uL (0-1.0); Monocytes % (A) 8 %; Neutrophils # (A) 3.6 k/uL (1.3-7.7); Neutrophils % (A) 63 %; Platelet Count 321 k/uL (150-450); RDW 14.5 % (11.5-15.5); WBC 5.7 k/uL (3.8-10.6)
[2017-12-17 11:11] VITALS: PULSE 82
--- NOTE | 2017-12-18 08:43 | DS ---
DISCHARGE SUMMARY This 77-year-old woman was admitted with diffuse weakness and possible acute urinary tract infection with sepsis E coli. The patient treated with antibiotics. The patient was originally slated to go to ECF, but apparently the patient is improving at this time and the ECF transfer is not approved, so the patient will be going to go home with home care at this time. Please refer to the previous dictation for discharge diagnoses and discharge medications. I would also recommend the patient follow up closely with Dr. Peña in the outpatient setting. In case there is a persistent continued weakness, the patient may be a candidate for rehab after reassessment. On exam vitals are stable. Cardiovascular S1, S2 muffled. Respirations: Clear to auscultation. Abdomen soft. Central nervous system: No focal deficits. The prognosis guarded. Total time taken 35 minutes. HAZEL / EVAN: [id number] /
--- NOTE | 2017-12-18 20:18 | P.PN ---
Subjective Progress Note Date: 12/16/17 Progress note being dictated for Dr. Diego. Interval history: This a 77-year-old female admitted with generalized diffuse weakness, UTI and multiple other medical issues. Maintained on Rocephin. Afebrile, normal WBC. Urine cultures reporting E. coli. Evaluated by physical therapy/OT and subacute rehab recommended at discharge. 12/16/2017 no overnight events. Afebrile. Pre auth. pending for subacute rehab. Objective - Vital Signs Vital signs: Vital Signs Temp 96.7 F L 12/16/17 15:00 Pulse 77 12/16/17 19:25 Resp 16 12/16/17 19:25 BP 163/78 12/16/17 15:00 Pulse Ox 96 12/16/17 16:00 Intake & Output 12/16/17 12/16/17 12/17/17 06:59 18:59 06:59 Intake Total 300 Output Total 1 Balance -1 300 Intake: Intake, IV Titration 300 Amount Sodium Chloride 0.9% 1, 300 000 ml @ 50 mls/hr IV . Q20H NASIR Rx#:[id number] Output: Urine 1 Other: # Voids 3 2 - Exam PHYSICAL EXAM: VITAL SIGNS: Temperature 97.3, pulse 76, respiratory rate 16, blood pressure 144 /68, O2 sat on room air 96% GENERAL: Sitting up in bed, no acute distress HEENT: Conjunctivae normal. eyes normal. Oral mucosa moist NECK: No JVD. No thyroid enlargement. No LNs CARDIOVASCULAR: S1, S2 muffled. No murmur RESPIRATION: Breath sounds diminished in the bases. Scattered rhonchi and crackles. ABDOMEN: Soft, nontender . No guarding. no masses palpable.Bowel sounds heard. LEGS: No edema. no swelling PSYCHIATRY: Alert and oriented -3, mood and affect normal. NERVOUS SYSTEM: Cranial N 2-12 grossly normal. Moves all 4 limbs. Diffuse weakness No focal deficits. Skin: no ulcer no rash - Labs CBC & Chem 7: 12/17/17 10:15 12/17/17 10:15 Labs: Abnormal Lab Results - Last 24 Hours (Table) 12/16/17 12/16/17 Range/Units 09:08 09:08 RBC 2.91 L (3.80-5.40) m/uL Hgb 9.6 L (11.4-16.0) gm/dL Hct 31.2 L (34.0-46.0) % MCV 106.9 H (80.0-100.0) fL MCHC 30.8 L (31.0-37.0) g/dL RDW 16.0 H (11.5-15.5) % Chloride 109 H (98-107) mmol/L Carbon Dioxide 19 L (22-30) mmol/L Glucose 155 H (74-99) mg/dL Microbiology - Last 24 Hours (Table) 12/13/17 15:38 Blood Culture - Preliminary Blood No Growth after 72 hours 12/13/17 18:17 Urine Culture - Preliminary Urine,Catheterized Escherichia coli Assessment and Plan Assessment: 1. Diffuse weakness , acute UTI with E. coli with sepsis, present on admission. 2. [ Leukocytosis resolved]. 3. [ Relative hypotension]. 4. [ Generalized Gait dysfunction, Multilevel degenerative joint disease per computed tomography scan]. 5. [ Pneumonia ruled out per CT]. 6. [ Hyponatremia, improving]. 7. [ Diabetes mellitus type 2. 8. Gastroesophageal reflux disease 9. Chronic CHF, diastolic dysfunction, EF 50-55% 10. Rheumatoid arthritis Plan: Continue on current medication regime , antibiotics, monitoring and symptomatic treatment. PT/OT. Discharge planning in progress with pre auth pending for [facility]. Sputum culture pending. The impression and plan of care has been dictated as directed. : I performed a history and examination of this patient, discussed the same with the dictator. I agree with the dictator's note ,documented as a scribe. Any additional findings or plans will be noted.
[2017-12-19] MEDS ORDERED: METHOTREXATE SODIUM 2.5 MG TAB PO SCH (09:00)
== END 2017-12-17 14:48 | disposition home or self-care (01) | DRG 872 ==
LOC: EC 14:29 → 4MS4W 17:42
PROVIDERS: ADMIT Internal Medicine; ATTEND Internal Medicine
DX: A41.51 Sepsis due to Escherichia coli [E. coli] (principal); E87.1 Hypo-osmolality and hyponatremia; I48.0 Paroxysmal atrial fibrillation; I11.0 Hypertensive heart disease with heart failure; I50.32 Chronic diastolic (congestive) heart failure; N39.0 Urinary tract infection, site not specified; E11.9 Type 2 diabetes mellitus without complications; R26.9 Unspecified abnormalities of gait and mobility; K21.9 Gastro-esophageal reflux disease without esophagitis; E78.5 Hyperlipidemia, unspecified; M19.91 Primary osteoarthritis, unspecified site; M06.9 Rheumatoid arthritis, unspecified; M48.56XD Collapsed vertebra, not elsewhere classified, lumbar region, subsequent encounter for fracture with routine healing; G89.29 Other chronic pain; M48.54XD Collapsed vertebra, not elsewhere classified, thoracic region, subsequent encounter for fracture with routine healing; H54.7 Unspecified visual loss; H91.90 Unspecified hearing loss, unspecified ear; K44.9 Diaphragmatic hernia without obstruction or gangrene; Z79.899 Other long term (current) drug therapy; Z79.01 Long term (current) use of anticoagulants; Z88.8 Allergy status to other drugs, medicaments and biological substances; Z90.49 Acquired absence of other specified parts of digestive tract; Z87.891 Personal history of nicotine dependence; Z98.49 Cataract extraction status, unspecified eye; Z91.030 Bee allergy status
CPT/HCPCS: 36415; 71046; 71250; 72100; 74176; 80048; 80053; 81001; 83605; 85025; 87040; 87070; 87077; 87086; 87186; 87205; 87502; 94640; 94760; 96361; 96365; 96375; 99285

== ENCOUNTER → 2018-01-26 | Outpatient (CLI) | payer MEDICARE ==
--- NOTE | 2018-01-27 14:37 | BD ---
EXAMINATION TYPE: MG DEXA axial skeleton. DATE OF EXAM: 01/26/2018 COMPARISON: 06.07.2012 CLINICAL HISTORY: 77 YR OLD FEMALE.....ICD-10 CODE: M81.0 OSTEOPOROSIS Height: 58 Weight: 128 FRAX RISK QUESTIONS: Alcohol (3 or more units per day): NO Family History (Parent hip fracture): NO FXS Glucocorticoids (More than 3mos): YES (Ex: prednisone, prednisolone, methylprednisolone, dexamethasone, and hydrocortisone). History of Fracture in Adulthood: YES Secondary Osteoporosis: NO 1. Type 1 Diabetes: NO 2. Hyperthyroidism: NO 3. Menopause before 45: NO 4. Malnutrition: NO 5. Chronic liver disease: NO Rheumatoid Arthritis: YES Current Tobacco Use: NO RISK FACTORS HISTORY OF: Spine Fracture: LUMBAR AND ALL THE WAY UP, CRUSHED VERTEBRAE X4 When: NOW Family History of Osteoporosis: BROTHER, Active: NOT REALLY, IN W/C Diet low in dairy products/other sources of calcium: NO Postmenopausal woman: YES AT 48 YRS OLD Lost more than 2 inches in height since high school: YES Frequent falls: PT IN W/C Poor Health: FRAIL BACK Hyperparathyroidism: NO Adrenal Insufficiency: NO MEDICATIONS: Prednisone or other steroids: YES, PREDNISONE FOR HER BACK How Long: ON AND OFF FOR YRS Thyroid Medications: STOPPED SYNTHROID 48 YRS AGO. Additional Medications: BP MEDS, VIT D, METFORMIN,LIPITOR, Additional History: DIABETIC, A-FIB, SEVERE BACK PAIN, RA EXAM MEASUREMENTS: Bone mineral densitometry was performed using the [employer]. Bone mineral density as measured about the Lumbar spine is: NOT SCANNED, MULTIPLE COMPRESSION FXS Bone mineral density about the R hip (g/cm2): 0.808 Bone mineral density about the L hip (g/cm2): 0.834 T Score values are as follows: -----R Neck: -2.0 -----L Neck: -1.7 -----R Total: -1.6 -----L Total: -1.4 Bone mineral density has: Decreased -13.2% since study of: 06.07.2012 FRAX%S: THERE IS A 21.5% CHANCE OF A MAJOR OSTEOPOROTIC FX AND A 5.6% OF HIP FX....PROBABILITY OF FX IN 10 YRS TIME IMPRESSION: Osteopenia (T Score between -2.5 and -1). There is slightly increased risk of fracture and the patient may be considered for treatment. Re-Screen 2-5 years. NOTE: T-SCORE=SD OF THE YOUNG ADULT MEAN.
== END | disposition home or self-care (01) ==
LOC: RADBDWWP 15:49
PROVIDERS: ATTEND Internal Medicine Rheumatology
DX: M85.80 Other specified disorders of bone density and structure, unspecified site (principal); M81.0 Age-related osteoporosis without current pathological fracture
CPT/HCPCS: 77080

== ENCOUNTER → 2019-01-24 | Outpatient (CLI) | payer MEDICARE ==
--- NOTE | 2019-01-24 12:13 | MR ---
EXAMINATION TYPE: MR shoulder LT wo con DATE OF EXAM: 01/24/2019 COMPARISON: NONE HISTORY: Rotator cuff tear or rupture or rotator cuff syndrome per order. Pain for one year with diff iculty raising overhead per patient. TECHNIQUE: Multiplanar, multisequence imaging of the right shoulder is performed without contrast. FINDINGS: Rotator Cuff: There is full-thickness retracted tear of the supraspinatus tendon with stump retracted to level of distal clavicle seen best paracoronal image 13. There is full-thickness retracted tear o f the infraspinatus tendon with stump retraction the level of distal clavicle closer to AC joint seen best paracoronal image 22. Subscapularis tendon has wavy course axial image 12 with surrounding flui d. Distal portion not well visualized. There is moderate to advanced atrophy of supraspinatus and inf raspinatus muscle bulk. Subscapularis muscle bulk is preserved. Acromioclavicular Joint: There is moderate to severe narrowing and spurring at acromioclavicular join t. Glenohumeral Joint: There is high riding humeral head. There is advanced superior glenohumeral joint space narrowing with moderate to large effusion. Labrum: The superior labrum is torn with high riding humeral head abutting superior labrum and osseou s glenoid. Mild to moderate spurring inferior medial humeral head is identified. Subchondral cystic c hange osseous glenoid inferiorly is noted. Biceps Tendon: The long head of biceps is not well identified in normal location, intracapsular and e xtracapsular portions are not well visualized. Tear cannot be excluded. Bone marrow signal: Subchondral cystic change osseous glenoid is present. Other: No additional significant abnormality is appreciated. IMPRESSION: 1. 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 There is underlying advanced AC and gle nohumeral joint arthropathy.
== END ==
LOC: RADMRIMAIN 09:20
PROVIDERS: ATTEND Physician Assistant Medical
DX: M75.122 Complete rotator cuff tear or rupture of left shoulder, not specified as traumatic (principal); M12.812 Other specific arthropathies, not elsewhere classified, left shoulder